=== PATIENT | female | born 1965 | race African-American/Black ===

== ENCOUNTER 2022-07-28 14:00 | Emergency (ER) | payer MEDICAID ==
[~2022-07-28] VITALS: Ht 149.9 cm; Wt 88.6 kg
[~2022-07-28 14:00] MED LIST: K-DUR20 MEQ PO
[2022-07-28 14:10] VITALS: TEMP 98.1
[2022-07-28 15:45] VITALS: BP 131/94; PULSE 99
== END 2022-07-28 15:45 | disposition home or self-care (01) ==
LOC: COL.ER 14:00
DX: M79.89 Other specified soft tissue disorders (principal); R79.1 Abnormal coagulation profile; Z28.310 Unvaccinated for COVID-19

== ENCOUNTER 2022-11-10 09:18 | Day surgery (SDC) | payer MEDICAID ==
[2022-11-10] VITALS (9 sets, daily range): BP systolic 116–156; BP diastolic 79–107; PULSE 79–93; TEMP 98.3
[~2022-11-10] VITALS: Ht 149.9 cm; Wt 85.3 kg
[2022-11-10 10:27] LABS: HEMATOCRIT 37.2 % (37.0-47.0); HEMOGLOBIN 12.3 g/dl (12.5-16.0); MEAN CELL VOLUME 80 fl (80.0-100.0); MEAN CORPUSCULAR HEMOGLOBIN 27 pg (27-31); MEAN CORPUSCULAR HGB CONC 33 g/dl (33.0-37.0); MEAN PLATELET VOLUME 10.1 fl (7.4-10.4); PLATELET COUNT 268 K/mm3 (130-400); RED BLOOD COUNT 4.65 M/mm3 (4.10-5.30); REDCELL DISTRIBUTION WIDTH-CV 15.9 % (11.5-14.5)
[2022-11-10 10:33] LABS: PROTHROMBIN TIME 11.4 SECONDS (9.7-12.8)
[2022-11-10 10:39] LABS: CALCIUM 9.7 mg/dL (8.4-10.2); CREATININE, serum 1.12 mg/dL (0.57-1.11); POTASSIUM 3.4 mmol/L (3.5-4.5)
[2022-11-10] MEDS ORDERED: ASPIRIN E.C. 8181 MG PO (10:40)
[2022-11-10] MEDS ORDERED: FLEXERIL 1010 MG/TAB PO (10:41)
[2022-11-10] MEDS ORDERED: CYMBALTA 30MG30 MG PO (10:42)
[2022-11-10] MEDS ORDERED: EPIPEN 2-PAK1 MG/ML IM (10:43)
[2022-11-10] MEDS ORDERED: HCTZ 25MG TAB25 MG PO (10:44)
[2022-11-10] MEDS ORDERED: ATARAX 10MG10 MG/TAB PO (10:44)
[2022-11-10] MEDS ORDERED: GLUCOPHAGE500 MG/TAB PO (10:46)
[2022-11-10] MEDS ORDERED: K-DUR20 MEQ PO (10:47)
[2022-11-10] MEDS ORDERED: TOPROL XL 50MG50 MG PO (10:48)
[2022-11-10] MEDS ORDERED: AMITRIPTYLINE H75 M1 PO (10:49)
--- NOTE | 2022-11-10 11:47 | NUR ---
SEE MERGE FOR ALL MEDICATIONS, INTERVENTIONS AND VITALS
--- NOTE | 2022-11-10 12:55 | NUR ---
Pt is transferred back [facility] from [facility] after negative cath. Report was initially received by Naomi JEFFREY, and pt settled. I received report at 1255. Pt resting comfortably, tr band in place to rt wrist, cms intact distal.
--- NOTE | 2022-11-10 15:13 | NUR ---
Pt ready for discharge. TR band has been deflated with no problem. cms remains intact distal. site dressed with band aid, folded 2x2 and coban. I reviewed dc/rx and fu instructions with pt and her mom. Pt has been up and is steady on her feet. Pt escorted to exit via wheelchair.
== END 2022-11-10 15:15 | disposition home or self-care (01) ==
LOC: COL.CAR 09:18
PROVIDERS: Internal Medicine Cardiovascular Disease
DX: I51.9 Heart disease, unspecified (principal); I25.10 Atherosclerotic heart disease of native coronary artery without angina pectoris; R00.0 Tachycardia, unspecified; I10 Essential (primary) hypertension; E66.9 Obesity, unspecified; I34.0 Nonrheumatic mitral (valve) insufficiency; R73.03 Prediabetes; R06.09 Other forms of dyspnea; Z79.899 Other long term (current) drug therapy
CPT/HCPCS: J1644; J2250; J3010; Q9967

== ENCOUNTER 2022-12-11 15:00 | Emergency (ER) | payer MEDICAID ==
[~2022-12-11] VITALS: Ht 149.9 cm; Wt 88.6 kg
[~2022-12-11 15:00] MED LIST changes: +AMITRIPTYLINE H75 M1 PO; +ASPIRIN E.C. 8181 MG PO; +ATARAX 10MG10 MG/TAB PO; +CYMBALTA 30MG30 MG PO; +EPIPEN 2-PAK1 MG/ML IM; +FLEXERIL 1010 MG/TAB PO; +GLUCOPHAGE500 MG/TAB PO; +HCTZ 25MG TAB25 MG PO; +TOPROL XL 50MG50 MG PO
[2022-12-11 16:38] LABS: COLLECTION METHOD CLEAN CATCH
[2022-12-11 16:48] LABS: URINE APPEARANCE Clear (CLEAR/HAZY); URINE COLOR Yellow (YELLOW)
[2022-12-11 16:49] LABS: URINE BLOOD TRACE-INTACT (NEGATIVE); URINE GLUCOSE Negative (NEGATIVE); URINE KETONE Negative (NEGATIVE); URINE NITRATE Negative (NEGATIVE); URINE PROTEIN(semi-quant) Negative (NEGATIVE); URINE UROBILINOGEN 0.2 E.U/dL (0.2-1.0)
[2022-12-11 17:03] LABS: SQUAMOUS EPITHELIAL 0-2 /hpf (0-10); URINE BACTERIA None Seen /hpf (NONE SEEN); URINE RBC 0-2 /hpf (0-2)
[2022-12-11 18:00] VITALS: BP 147/96; PULSE 90; TEMP 97.5
[2022-12-11] MEDS ORDERED: NORCO 325 MG-51 TAB PO (18:06)
== END 2022-12-11 18:30 | disposition home or self-care (01) ==
LOC: COL.ER 15:00
PROVIDERS: Nurse Practitioner
DX: M54.42 Lumbago with sciatica, left side (principal)
CPT/HCPCS: J2360

== ENCOUNTER → 2023-07-11 | Outpatient (CLI) | payer MEDICAID ==
[~2023-07-11] MED LIST changes: +NORCO 325 MG-51 TAB PO
== END ==
LOC: MHCPAIN 11:36
DX: M50.30 Other cervical disc degeneration, unspecified cervical region (principal); R29.6 Repeated falls; M54.50 Low back pain, unspecified; R79.82 Elevated C-reactive protein (CRP); M79.7 Fibromyalgia; M25.551 Pain in right hip; M25.552 Pain in left hip
CPT/HCPCS: G0463

== ENCOUNTER → 2023-07-11 | Outpatient (CLI) | payer MEDICAID | LOC: COL.RAD 12:31 | DX: M25.552 Pain in left hip (principal); M25.551 Pain in right hip; R10.2 Pelvic and perineal pain ==

== ENCOUNTER → 2024-03-15 | Outpatient (CLI) | payer MEDICAID ==
[~2024-03-15] MED LIST changes: +DOXYCYCLINE 10100 MG PO; +TOPROL XL100 MG PO
== END ==
LOC: MHCPAIN 15:43
DX: M48.02 Spinal stenosis, cervical region (principal); M48.8X2 Other specified spondylopathies, cervical region; M25.561 Pain in right knee; M25.562 Pain in left knee
CPT/HCPCS: G0463

== ENCOUNTER → 2024-06-18 | Outpatient (RCR) | payer MEDICAID | END | disposition home or self-care (01) | LOC: WSC → WSPT 06-05 15:00 → WSC 12:45 | DX: G89.4 Chronic pain syndrome (principal) ==

== ENCOUNTER 2024-07-06 13:08 | Emergency (ER) | payer MEDICAID ==
[~2024-07-06] VITALS: Ht 149.9 cm; Wt 87.3 kg
[2024-07-06 13:34] VITALS: BP 117/75; TEMP 98
[2024-07-06 16:39] VITALS: PULSE 72
== END 2024-07-06 16:34 | disposition home or self-care (01) ==
LOC: COL.ER 13:08
DX: J06.9 Acute upper respiratory infection, unspecified (principal); B97.89 Other viral agents as the cause of diseases classified elsewhere

== ENCOUNTER → 2024-07-12 | Outpatient (CLI) | payer MEDICAID | LOC: COL.RAD 15:44 | DX: S83.242A Other tear of medial meniscus, current injury, left knee, initial encounter (principal); M94.262 Chondromalacia, left knee; M17.12 Unilateral primary osteoarthritis, left knee ==